=== PATIENT | female | born 1965 | race Caucasian/White ===

== ENCOUNTER → 2017-08-06 14:23 | Outpatient (CLI) | payer OTHER, SELFPAY ==
--- NOTE | 2017-08-06 14:25 | CT_ITS ---
STUDY: CT ABDOMEN AND PELVIS WITH CONTRAST REASON FOR EXAM: Female, 52 years old. Abdominal pain and bloating RADIATION DOSAGE (If Supplied By Facility): CTDIvol = ( 18.74 ) mGy, DLP = ( 1297.83 ) mGycm TECHNIQUE: Transaxial images were obtained from the dome of the diaphragm to the symphysis pubis with oral contrast. 100 ml of Isovue 300 contrast was administered. Sagittal and coronal images were reconstructed. Individualized dose optimization techniques were used for this CT. COMPARISON: None. FINDINGS: The visualized lung bases are clear. The visualized portions of the heart and pericardium are within normal limits. There are no calcified gallstones present. The liver is within normal limits. There are no suspicious hepatic lesions. The spleen is normal in size. The pancreas is within normal limits. The adrenal glands are within normal limits. There are no renal or ureteral stones. There is no hydronephrosis. There are no focal renal lesions. There is concentric wall thickening in the proximal body of the stomach (image 26 series 2). There is no bowel obstruction or inflammation. The appendix is visualized and appears normal. The aorta is normal in caliber. There is no abdominal or pelvic free air, free fluid, fluid collection or lymphadenopathy. There are no destructive osseous lesions. CT/Abdomen/Pelvis WITH Contrast IMPRESSION: Concentric wall thickening in the proximal body of the stomach. Further evaluation with endoscopy is recommended to exclude neoplasm. No bowel obstruction or dilation. Normal appendix. Normal kidneys. No hydronephrosis. Electronically Signed: Tomy Perrin, at 20:25 EDT Tel , Service support ,
== END ==
PROVIDERS: Family Provider Family Medicine; PCP Family Medicine; Visit Provider Family Medicine
DX: R10.9 Unspecified abdominal pain (principal)
CPT/HCPCS: 74177

== ENCOUNTER → 2017-08-30 15:31 | Outpatient (CLI) | payer OTHER, SELFPAY ==
--- NOTE | 2017-08-30 | IMM_PTH ---
PATIENT: SHIVANI LEW LOC: [facility] U#:[id number] AGE/SX: 59/F ROOM: RE08/30/[address]: Dr. Flo Cao MD : 1965 BED: DIS: SPEC #: [id number] RECD: 09/01/17 13:55 STATUS: MOI RUDI #: [id number] GABBI: 08/30/17 00:[address]: Flo Cao DEPT: IMMUNOHISTOCHEMISTRY RECD BY: Tameka Joyce Tissues: Gastric mucous membrane Procedures: H Pylori (initial) PHYSICIAN & INSTITUTION [place] [address] SPECIMEN INFORMATION: Tissue Source: Gastric antrum body biopsy Clinical Info: Abdomen pain Specimen Number: [id number] CPT code: 10767 METHODOLOGY: Deparaffinized sections of prefer/formalin-fixed tissue or PAP/DQ stained slides are incubated with monoclonal/polyclonal antibodies/oligonucleotide probes. Localization is made via biotin free immunoperoxidase method. Appropriate controls are performed and reacted as expected. Results on target cell population are indicated in the following table: RESULTS: ANTIBODY / CLONE RESULT H Pylori (polyclonal) negative These tests were developed and their performance characteristics determined by [facility]. They may not have been cleared or approved by the U.S. Food and Drug Administration. The FDA has determined that such clearance or approval is not necessary. INTERPRETATION: Gastric antrum body, biopsy: Negative for Helicobacter pylori organisms. HOLLY:henrietta 09/02/17
--- NOTE | 2017-08-30 12:30 | EGD_PTH ---
PATIENT: SHIVANI LEW LOC: [facility] U#:[id number] AGE/SX: 59/F ROOM: RE08/30/[address]: Dr. Flo Cao MD : 1965 BED: DIS: SPEC #: [id number] RECD: 08/30/17 15:16 STATUS: MOI RUDI #: [id number] GABBI: 08/30/17 12:[address]: Flo Cao DEPT: SURGICAL PATHOLOGY RECD BY: Federico Paez ENTERED: 08/31/17 08:00 SP TYPE: EGD BIOPSY OT DR: Dr. Lacy Juarez MD [facility] Tissues: Gastric mucous membrane Procedures: Surgery Specimen Level IV HEADER OPERATION: EGD with biopsy PRE-OP DIAGNOSIS: Abdomen pain TISSUE SUBMITTED: Gastric antrum/body biopsy, rule out gastritis MICROSCOPIC DIAGNOSIS Gastric antrum/body, biopsy: Mild gastritis. See microscopic description and comment. SJ:henrietta 09/01/17 COMMENT The results of immunohistochemistry for Helicobacter pylori will be reported separately ([id number]). MICROSCOPIC DESCRIPTION Slides are reviewed. The specimen shows fragments of gastric mucosa with chronic inflammatory cell infiltrates in the lamina propria consisting of lymphocytes and plasma cells, consistent with mild chronic gastritis. GROSS DESCRIPTION Received in fixative is one container labeled with the patient's name and designated Gastric antrum body biopsy. The specimen consists of multiple irregular fragments of light singh soft tissue that in aggregate measure 0.8 x 0.5 x 0.1 cm. The specimen is totally submitted in one cassette. / SJ:rg 08/31/17 TC:3 CPT: 70464
== END ==
PROVIDERS: Visit Provider Internal Medicine Gastroenterology
DX: R10.9 Unspecified abdominal pain (principal)
CPT/HCPCS: 88305; 88342

== ENCOUNTER → 2018-04-02 10:11 | Outpatient (CLI) | payer OTHER, SELFPAY ==
--- NOTE | 2018-04-02 10:14 | BI_ITS ---
MAMMOGRAPHY - BILATERAL SCREENING REASON FOR EXAM: Female, 53 years old. Routine annual screening examination. PERTINENT HISTORY: Non-contributory. Remote bilateral excisional breast biopsies. TECHNIQUE: Digital bilateral breast remigio (3D mammographic acquisition) in the CC and MLO projections. 2-D mediolateral oblique (MLO) and craniocaudad (CC) views of both breasts were obtained. CAD: Full Field Digital Mammography with Computer Added Detection was performed. COMPARISON: None. Baseline examination. FINDINGS: Breast Composition: The breasts are heterogeneously dense, which may obscure small masses. There is a 5.6 mm x 6 mm well-defined nodule in the central deep portion of the right breast. A similar appearing nodule is seen along the inferior medial aspect of the right breast. Correlation with ultrasound is recommended. No other significant abnormalities are identified. BI/SCREENING MAMM (CAD), BILAT IMPRESSION: Small nodular densities in the right breast as described. Correlation with ultrasound is recommended. ASSESSMENT CATEGORY: BIRADS Category 0: Incomplete. Need additional imaging evaluation. A letter regarding these results will be sent to the patient by the facility within 30 days. Approximately 10% of breast cancers are not detected by mammography. A normal mammogram should not delay biopsy of a clinically suspicious abnormality. [id number] Electronically Signed: Tobias Tyson MD at 9:27 EST , Service support ,
== END ==
PROVIDERS: Family Provider Family Medicine; PCP Family Medicine; Referring Provider Family Medicine; Visit Provider Family Medicine
DX: Z12.31 Encounter for screening mammogram for malignant neoplasm of breast (principal)
CPT/HCPCS: 77063; 77067

== ENCOUNTER → 2018-04-08 12:42 | Outpatient (CLI) | payer OTHER, SELFPAY ==
--- NOTE | 2018-04-08 12:45 | US_ITS ---
STUDY: ULTRASOUND BREAST - RIGHT REASON FOR EXAM: Female, 53 years old. Abnormal screening mammogram. TECHNIQUE: Axial and longitudinal images of the RIGHT breast were performed with a high resolution ultrasound transducer. COMPARISON: Comparison is made with prior mammogram dated April 02, 2018. FINDINGS: RIGHT Breast: There is a 4 mm x 4 mm x 3 mm cyst at the 12:00 position of the breast and 1 cm from the nipple. There is also evidence of a 3 mm x 2 mm x 3 mm cyst at the 7:00 position of the breast at 1 cm from the nipple. US/Breast Limited Unilateral IMPRESSION: 2 small cysts as described. Routine mammographic follow-up is recommended ASSESSMENT CATEGORY: BIRADS Category 2: Benign. A letter regarding these results will be sent to the patient by the facility within 30 days. Electronically Signed: Tobias Tyson, at 15:41 EST , Service support ,
== END ==
PROVIDERS: Family Provider Family Medicine; PCP Family Medicine; Referring Provider Family Medicine; Visit Provider Family Medicine
DX: R92.8 Other abnormal and inconclusive findings on diagnostic imaging of breast (principal)
CPT/HCPCS: 76642

== ENCOUNTER → 2019-06-07 08:29 | Outpatient (CLI) | payer OTHER, SELFPAY ==
--- NOTE | 2019-06-07 08:32 | BI_ITS ---
MAMMOGRAPHY - BILATERAL SCREENING REASON FOR EXAM: Female, 54 years old. Routine annual screening examination. PERTINENT HISTORY: Non-contributory. History of remote bilateral excisional breast biopsies. TECHNIQUE: Digital bilateral breast vandana (3D mammographic acquisition) in the CC and MLO projections. 2-D mediolateral oblique (MLO) and craniocaudad (CC) views of both breasts were obtained. CAD: Full Field Digital Mammography with Computer Added Detection was performed. COMPARISON: Comparison is made with prior mammogram dated December 31, 2018 and prior ultrasound of the right breast dated April 08, 2018. FINDINGS: Breast Composition: The breasts are heterogeneously dense, which may obscure small masses. There are no dominant masses or suspicious calcifications. Stable well-defined nodule in the central aspect of the right breast. No other significant abnormalities are identified. There has been no significant change since the prior study. BI/SCREEN MAMM (CAD) W/VANDANA BILAT IMPRESSION: Stable bilateral screening mammogram. Yearly follow-up mammogram recommended. (A) ASSESSMENT CATEGORY: BIRADS Category 2: Benign. A letter regarding these results will be sent to the patient by the facility within 30 days. Approximately 10% of breast cancers are not detected by mammography. A normal mammogram should not delay biopsy of a clinically suspicious abnormality. [id number] Electronically Signed: Tobias Tyson, at 10:22 EDT , Service support ,
== END ==
PROVIDERS: PCP Family Medicine; Referring Provider Family Medicine; Visit Provider Family Medicine
DX: Z12.31 Encounter for screening mammogram for malignant neoplasm of breast (principal)
CPT/HCPCS: 77063; 77067

== ENCOUNTER → 2019-07-20 | Outpatient (CLI) | payer OTHER, SELFPAY ==
[2019-07-20 15:21] VITALS: BMI 30.7
[2019-07-26 05:11] LABS: HPV APTIMA, High Risk Negative (Negative)
== END | disposition home or self-care (01) ==
LOC: LABSPEC 16:58
PROVIDERS: PCP Family Medicine; Referring Provider Nurse Practitioner Women's Health; Visit Provider Nurse Practitioner Women's Health
DX: Z12.4 Encounter for screening for malignant neoplasm of cervix (principal)
CPT/HCPCS: 87624; 88175; G0145

== ENCOUNTER 2019-09-12 05:25 | Day surgery (SDC) | payer OTHER, SELFPAY ==
[2019-07-20 15:21] VITALS: BMI 30.7
[2019-08-28 11:35] VITALS: BMI 30.7
--- NOTE | 2019-09-05 16:57 | EKG12_ITS ---
Test Reason : PREOP Blood Pressure : / mmHG Vent. Rate : 077 BPM Atrial Rate : 077 BPM P-R Int : 156 ms QRS Dur : 080 ms QT Int : 398 ms P-R-T Axes : 050 054 041 degrees QTc Int : 450 ms Normal sinus rhythm Normal ECG Confirmed by IRASEMA CONKLIN ([id number]), marketing editor XIN GILLIS ([id number]) on 09/08/2019 2:41:31 PM Referred By: Arti Abreu Confirmed By:IRASEMA CONKLIN
[2019-09-05 17:07] LABS: Hematocrit 42.3 % (37-47); Hemoglobin 14.5 g/dL (12.0-15.0); Mean Corp Hgb Conc 34.3 g/dL (32-36); Mean Corpuscular Hgb 32.2 pg (27.0-32.0); Mean Platelet Vol. 9.8 fl (6.2-12.0); Platelet Count 210 K/mm3 (150-450); RBC Distribution Width CV 11.9 % (11.6-14.6); RBC Distribution Width SD 41.1 fl (35.1-43.9); White Blood Count 5.3 K/mm3 (4.4-11.0)
[2019-09-05 18:07] LABS: Anion Gap 6 (5-15); BUN 15 mg/dL (7-18); BUN/Creat Ratio 18.1 RATIO (10-20); Calcium,Total 9.4 mg/dL (8.5-10.1); Chloride 111 mmol/L (98-107); Creatinine, Serum 0.83 mg/dL (0.55-1.02); EST Glomerular Filtration Rate 75 mL/min (>60); Est Glom Filt Rate - Afr Amer 91 mL/min (>60); Glucose 101 mg/dL (74-106); Sodium Level 141 mmol/L (136-145)
[2019-09-05 18:08] LABS: Magnesium 2.4 mg/dL (1.6-2.6)
--- NOTE | 2019-09-10 16:03 | PCM.HPOB.BLA ---
- Problem List (1) Incomplete uterovaginal prolapse Status: Acute Comment: failed pessary. plan TVH BSO combo case with Lilian. History and Physical Date of Admission: 09/12/19 Intake Vital Signs 08/28/19 Height 5 ft 5 in 08/28/19 Weight: 186 lb 08/28/19 BMI 30.9 08/28/19 BP 104/72 Intake Visit Reasons: pre op Chief Complaint: pre op TVH BSO Lilian [employer]bo [employer] Director Required: No Is patient in pain?: No Allergies No Known Allergies Allergy (Verified 08/28/19 11:35) Medications elderberry fruit 200 mg capsule mg PO 08/28/19 [History] estradiol 1 g VAGINAL 2XW 08/28/19 [History Confirmed 08/28/19] Is last menstrual period known: No Post menopausal: No Patient : No : No [facility] Medical History Uterovaginal prolapse (Acute) Surgical History H/O lumpectomy (Acute) Family History Other Heart disease Social History (Updated 08/28/19 @ 13:[address] Arti Abreu MD) Smoking Status: Never smoker alcohol intake: current details: social substance use type: does not use caffeine: Yes what type of physical activity do you participate in: walking seatbelt use: always do you feel safe at home: Yes additional social history: [employer] Patient [place] the [employer] [place]: Details: SHIVANI LEW is a 54 year old who presents for incomplete uterovaginal prolapse and having a combo case with urogyn. Pregancy History 1 Elective abortions Hx Para 0 Spontaneous abortions 1 Hx # Term Pregnancies Ectopic pregnancies Hx # Pregnancies Multiple births # of living children ROS Const Constitutional: Denies fatigue, fever(s), headache(s), increased appetite, poor appetite, weight gain or weight loss ENT ENT: Denies dizziness or dry mouth Cardio Card: Denies chest pain Resp Resp: Denies cough or dyspnea GI GI: Reports as per HPI; denies abdominal pain, constipation, nausea or vomiting : Reports as per HPI and prolapse symptoms; denies difficulty urinating, painful urination, pelvic pain, urinary frequency, urinary incontinence, urinary hesitancy, urinary urgency, vaginal discharge, vaginal dryness, vaginal odor or vaginal itching Musc Musc: Denies joint pain, back pain or muscle weakness Skin Skin/Breast: Denies hair loss, change in hair, dry skin, breast lump, breast pain or breast skin changes Neuro Neuro: Denies dizziness Psych Psych: Denies anxiety or depression Endo Endo: Denies cold intolerance, excessive sweating, heat intolerance or increased thirst Cam/Lymph Hematologic/Lymphatic: Denies easy bleeding, Denies easy bruising, Denies enlarged lymph nodes Exam Const General: cooperative, healthy appearing, comfortable, no acute distress, well developed Nutritional Appearance: average body habitus Orientation: alert [facility] Head: normal to inspection, normocephalic Ears: hearing grossly normal bilaterally, external ears normal Nose: external nose normal, nares normal Face and sinus: normal facial exam Neck Neck: normal visual inspection, no lymphadenopathy, trachea midline Thyroid: thyroid normal Chest Chest palpation & inspection: normal inspection of the chest Resp Effort & Inspection: normal respiratory effort Auscultation: clear to auscultation bilaterally Cardio Rate: regular rate Rhythm: regular rhythm Heart Sounds: S1 normal, S2 normal GI Inspection: normal to inspection, non-distended Palpation: soft, no hepatosplenomegaly General: bladder normal to palpation External Female Exam: normal external appearance, normal appearance of the urethra Urethra: normal appearance of the urethra Speculum Exam - Vagina: normal appearance of the vagina, normal vaginal discharge Speculum Exam - Cervix: normal appearance of the cervix, nontender Bimanual Exam- Vagina & Uterus: bladder normal to palpation, No cervical tenderness Bimanual Exam- Adnexa, other: normal adnexae, adnexae mobile, no adnexal masses, rectocele, cystocele, vaginal apex descent Pelvic Support: cystocele, rectocele, vaginal apex descent Musc Cervical Spine: other Other: gross motor intact no deficits, full bilateral strength Skin General: no rashes or lesions noted Neuro General: alert, awake, moves all extremities, no focal motor deficits Motor: muscle tone normal throughout Extrem General: normal to inspection, no pedal edema Psych Appearance: grossly normal Mental Status: mental status grossly normal Affect: normal affect Speech and Movement: speech and movement normal Assessment & Plan Problems 1. Incomplete uterovaginal prolapse N81.2 failed pessary. plan TVH BSO combo case with Lilian. Plan After discussing the patient's diagnosis and treatment plan options, patient wishes to proceed with surgical management. I have discussed with the patient the risks, benefits, and alternatives of the procedure which include but are not limited to risks of anesthesia, bleeding, infection, possible damage to bowel, bladder, or surrounding vasculature which could lead to additional surgery to evaluate any complications. Patient agrees to procedure and wishes to proceed. ACOG/uptodate references given for additional information regarding procedure. Coding Level of Care Code No Charge Diagnoses Incomplete uterovaginal prolapse N81.2
[2019-09-12] VITALS (12 sets, daily range): BP systolic 98–130; BP diastolic 52–86; PULSE 56–100; RESP 14–24; TEMP 36.1–37.2; O2SAT 86–100; BMI 31.2
--- NOTE | 2019-09-12 | HYST_PTH ---
PATIENT: SHIVANI LEW LOC: [facility] U#:[id number] AGE/SX: 54/F ROOM: RE09/12/[address]: Dr. Arti Abreu MD : 1965 BED: DIS: 09/13/2019 SPEC #: [id number] RECD: 09/12/19 11:49 STATUS: MOI GRIJALVA #: [id number] GABBI: 09/12/19 00:[address]: Arti Abreu DEPT: SURGICAL PATHOLOGY RECD BY: Eliel Piedra ENTERED: 09/12/19 11:50 SP TYPE: HYSTERECT OTHR DR: MD Dr. Shannan Saez MD Tissues: Uterus, NOS Procedures: Surgery Specimen Level V HEADER OPERATION: Vaginal hysterectomy, BSO PRE-OP DIAGNOSIS: Incomplete uterovaginal prolapse TISSUE SUBMITTED: Uterus, bilateral fallopian tubes and ovaries MICROSCOPIC DIAGNOSIS Uterus, bilateral fallopian tubes and ovaries, vaginal hysterectomy and bilateral salpingo-oophorectomy: Cervix - chronic cystic cervicitis, hyperkeratosis and parakeratosis. Endometrium - proliferative endometrium with focal cystic changes. Endometrial polyp - simple endometrial hyperplasia without atypia. Myometrium - focal adenomyosis. - Intramural leiomyoma (0.4 cm in greatest dimension). Bilateral fallopian tubes - no pathologic diagnosis. Bilateral ovaries - simple serous cysts (0.2 and 1 cm in greatest dimension). HOLLY:henrietta 09/13/19 MICROSCOPIC DESCRIPTION Slides are reviewed. GROSS DESCRIPTION Received in fixative is one container labeled with the patient's name and designated uterus and bilateral fallopian tubes, bilateral ovaries. The specimen consists of a hysterectomy specimen consisting of uterus with cervix and detached bilateral fallopian tubes and ovaries. The uterus with cervix weighs 38 gm and measures 7 x 3 x 2.3 cm. The ectocervix appears markedly enlarged. The ectocervical mucosa shows focal ragged area. The external os is circular in contour. The endocervical canal measures 3 cm in length and the endocervical mucosa is singh, glistening and unremarkable. The endocervical canal is filled with mucoid material. Sections of the cervix reveal a few cysts filled with mucoid material. The triangular endometrial cavity measures 3 cm in length and up to 1 cm in width. The endometrial cavity shows a polyp at the fundus measuring 0.5 x 0.5 x 0.1 cm. The myometrial wall underneath the polyp is not indurated. The rest of the endometrium is singh, glistening and measures 0.1 cm in thickness. Sections of the uterine wall do not reveal any mass lesion and measures up to 1.5 cm in thickness. The fallopian tubes are not identified as right or left. One of the fallopian tubes measure 4 cm in length and 0.5 cm in diameter. A fimbrial end is identified. Sections reveal unremarkable cut surfaces. The adjacent ovary measures 2 x 1.5 x 1 cm. Sections reveal unremarkable cut surfaces. The second fallopian tube is also similar appearance to first and measures 3.5 cm in length and 0.5 cm in diameter. No tubo-ovarian adhesions are identified on both sides. The adjacent second ovary measures 2.5 x 2 x 1 cm. Sections reveal a cyst filled with clear fluid measuring 1 cm in greatest dimension. Gambling Floor Supervisor sections are submitted in ten cassettes as follows: 1 - anterior cervix, 2 - posterior cervix (1 & 2 also contains the ragged area on the ectocervix), 3 & 4 - anterior uterine wall, 5 & 6 - posterior uterine wall, 7??endometrial polyp with underlying uterine wall, entirely submitted, 8 - one fallopian tube and adjacent ovary, 9??second fallopian tube and adjacent ovary, 10 - more sections second ovary. / HOLLY:henrietta 09/12/19 TC:5 CPT: 57232
[2019-09-12 05:51] LABS: Bedside Glucose 192 mg/dL (70-110)
[2019-09-12 05:56] LABS: Internal QC Validated? YES +Cl - CLEAR BKGD; Pregnancy, Urine Negative Negative
[2019-09-12] MEDS: dexAMETHasone 10 MG/ML Vial 8 MG IV (06:18)
[2019-09-12] MEDS: Acetaminophen 500 MG Tablet 1000 MG PO ×2 (06:20→17:09)
[2019-09-12] MEDS: Celecoxib 200 MG Capsule 400 MG PO (06:21)
[2019-09-12] MEDS: Scopolamine 1mg/72hr Patch 1 PATCH TRANSDERM. (06:21)
[2019-09-12] MEDS: Gabapentin 600 MG Tablet PO (06:21)
[2019-09-12] MEDS: Enoxaparin 40 MG/0.4 ML Syringe SC (06:22)
[2019-09-12] MEDS: Lactated Ringers 1,000 ML 40 ML IV (06:22)
[2019-09-12] MEDS: Insulin Lispro 100 UNIT/ML INSULN.PEN SC (06:29)
[2019-09-12] MEDS: Cefazolin 2 GM in 0.9% Normal Saline 100 ML IV (07:30)
[2019-09-12] MEDS: Lidocaine/D5W 2,000 MG/250 ML IV.SOLN 2000 MG (07:46)
--- NOTE | 2019-09-12 07:58 | PCM.HP.STD ---
Problem List (1) Stress incontinence Status: Acute (2) Incomplete uterovaginal prolapse Status: Acute Comment: failed pessary. plan TVH BSO combo case with Lilian. History of Present Illness Date of Admission: 09/12/19 The patient is a 54 year old Fwith pelvic organ prolapse who presents for definitive surgical intervention. She has undergone urodynamics, office cystoscopy and informed consent including a discussion regarding COVID-19. Past Medical History Medical History: Medical History (Last Reviewed 09/12/19 @ 08:[address] Shannan Quintana MD) Uterovaginal prolapse N81.4 Allergies No Known Allergies Allergy (Verified 08/28/19 11:35) Home Medications: Ambulatory Orders Medication Instructions Recorded estradiol 1 g VAGINAL 2XW 08/28/19 Elderberry Fruit/Honey [Little 118 ml PO DAILY 09/05/19 Remedies Cough-Immune] Surgical History: Surgical History (Last Reviewed 09/12/19 @ 08:[address] Shannan Quintana MD) H/O lumpectomy Z98.890 bilateral Smoking Status: Former smoker Tobacco Use: Non-smoker Review of Systems Constitutional: Denies: Anorexia, Chills, Fever Eyes: Denies: Vision Change HEENT: Denies: Visual Changes Cardiovascular: Denies: Chest Pain, Chest Pressure Respiratory: Denies: Cough, Shortness of Breath Gastrointestinal: Denies: Abdominal Pain, Diarrhea, Vomiting Gynecological: Denies: Vaginal discharge Musculoskeletal: Denies: Muscle pain Skin: Denies: Wounds Neurological: Denies: Slurred speech, Confusion VTE Information - Inpt Only VTE Present on Admission: Yes VTE Mechan Device Prophylaxis: SCD's VTE Pharm Prophylaxis ordered?: Yes Patient Problems: Active and Suspected Problems (Last Reviewed 08/28/19 @ 11:35 by Sheridan Hand) Stress incontinence (Acute) - Physical Exam Vitals/I&O's: Vital Signs Temp Pulse Resp BP Pulse Ox 96.9 F L 85 14 130/80 H 95 09/12/19 05:57 09/12/19 05:57 09/12/19 05:57 09/12/19 05:57 09/12/19 05:57 Oxygen Delivery Method Room Air Weight: 82.6 kg Body Mass Index (BMI) 31.2 General: Alert, Oriented x3, Cooperative, No apparent distress HEENT: Atraumatic, Normocephalic Oral: Moist Mucosa Neck: Supple, Trachea Midline Lungs: Clear to auscultation, Normal air movement Cardiovascular: Regular rate, Regular Rhythm Abdomen: Soft, Non Tender, Non-Distended Extremities: No clubbing Skin: No rashes Musculoskeletal: No Muscle Wasting Neurological: Cranial nerves II-XII grossly intact, Neuro grossly intact Psych/Mental Status: Normal Affect, Alert and oriented to time, place, person, mood and affect Laboratory Results 09/12/19 05:46: POC Glucose 192 H 09/12/19 05:52: Urine Test Negative Current Medications Lactated Ringer's () 1,000 mls @ 40 mls/hr IV .Q25H HERNAN Last Admin: 09/12/19 06:22 Dose: 40 mls/hr Documented by: Lactated Ringer's () 1,000 mls @ 70 mls/hr IV .[id number] HERNAN Ketamine HCl 250 mg/ Sodium (Chloride) 250 mls @ 50.349 mls/hr IV .Q4H58M ONE Stop: 09/12/19 11:57 Insulin Human Lispro (Humalog Kwikpen (Bkc)) 0 unit SC Q4H PRN PRN; Protocol PRN Reason: BG >/= 180, SEE PROTOCOL Last Admin: 09/12/19 06:29 Dose: 1 u Documented by: Assessment/Plan All Active Problems (Last Reviewed 08/28/19 @ 11:35 by Sheridan Hand) Stress incontinence (Acute) Incomplete uterovaginal prolapse (Acute) anterior and posterior repair, bilateral sacrospinous ligament fixation with dermis, midurethral sling and cystoscopy with . Procedure Criteria Procedure Type: Elective COVID Risk Discussion: The surgeon/proceduralist and patient have discussed in detail the risk of exposure to and/or potential harm posed by the COVID-19 virus with having a surgery/procedure at this time versus the risk of delaying the surgery/procedure. It is not possible to know either the risk of delaying the surgery or procedure or chance of getting an infection with perfect accuracy, but a joint decision was made between the patient and the surgeon/proceduralist to proceed at this time with the scheduled surgery/procedure as indicated on the consent form.
--- NOTE | 2019-09-12 08:02 | OP.PCM_ITS ---
Problem List (1) Stress incontinence Status: Acute (2) Incomplete uterovaginal prolapse Status: Acute Comment: failed pessary. plan TVH BSO combo case with Lilian. Report of Operation Date of Procedure: 09/12/19 Pre-Operative Diagnosis: incomplete uterovaginal prolapse, stress incontinence Post-Operative Diagnosis: same Surgery/Procedure Performed:: Anterior and posterior repair with dermis, bilateral sacrospinous ligament fixation, mid urethral sling insertion, cystoscopy with bilateral ureteral catheterization precision millwright: Jayna Type of Anesthesia:: General Estimated Blood Loss (mL): 25cc Description of Procedure: The patient was taken to the operating room and placed on the operating room table. Anesthesia monitored the head, neck, airway, IV access and vital signs throughout the case. Once anesthesia was appropriate ministered the patient was laced into dorsal lithotomy in Trendelenburg position and was prepped and draped in usual sterile fashion. A sterile Gerber catheter was then inserted to straight drain. Dr. Abreu and Dr. Wadsworth then performed their portion of the case and closed the vaginal cuff. At this time the case was turned to nj. The anterior vaginal wall was injected with vasopressin submucosally for hemostatic control and hydrostatic dissection. An anterior vertical incision was made approximately 2 and half centimeters in length. Sharp and blunt dissection was performed on either side until the ischial spines were clearly palpable and the sacrospinous ligaments were freed from surrounding tissues. Using a 2 Monodek sutures were taken through the sacrospinous ligament brought through the dermis and then out into the apex of the vagina. The dermis was sutured using interrupted 2-0 Vicryl in the midline at the apex and the bladder neck area as well as the white lines bilaterally. At this time the midline vaginal mucosa was closed with running interlocking 2-0 Vicryl. The apex sutures through the sacrospinous ligament were then tied down. The suture on the right side appeared to be pulled through the sacrospinous ligament. At this time attention was turned toward the posterior wall. The submucosa was once again injected with vasopressin, a midline incision was made and sharp and blunt dissection was performed until the rectovaginal fascia was identified. On the patient's right side the dissection continued down to the sacrospinous ligament and another to a Monodek was passed through this, through a small portion of dermis and then through the apex. The rectovaginal fascia was then brought together using dermis and 2-0 Vicryl. The perineal body was brought together with 2-0 Vicryl interrupted sutures. Following this new support, a 2-0 Vicryl was used to close the posterior vaginal fascia in running interlocking fashion. The sacrospinous ligament suture was then tied down without difficulty. At this time the submucosa of the mid urethral space was filled with vasopressin. A midline incision was made. Blunt and sharp dissection was performed on either side of the urethra in order to prepare for placement of the mid urethral sling. The alto sling was placed into the obturator complexes bilaterally using the trochars. There was no difficulty in placement of the sling. It lay flat against the urethra without tension. The mid atrial incision was then closed with running interlocking 2-0 Vicryl. At this time the Gerber catheter was removed and a cystourethroscopy was performed through the urethra. This revealed no evidence of injury to the urinary bladder. There was no mass, ulceration, foreign body identified. Bilateral ureteral orifices were catheterized with the 5 Frisian whistle-tip. It easily passed bilaterally to 20 cm without blood or obstruction. The urethra was visualized and there was no entry into the urethra. The Gerber catheter was then reinserted into the urinary bladder through the urethra and the balloon was inflated with 10 cc of saline. The vagina was packed with Premarin cream and vaginal packing. The patient was then awakened and taken to the recovery room in good condition. There were no complications during this procedure. Grafts/Implants Used: Dermis, Altis midurethral sling - Complications None - Admit VTE Documentation VTE Present on Admission: Yes VTE Mechan Device Prophylaxis: SCD's VTE Pharm Prophylaxis ordered?: Yes
--- NOTE | 2019-09-12 08:03 | DCINST_ITS ---
Discharge Diet: No Restrictions Discharge Activity: May Not Drive - for 2 weeks, May Shower - no tub bathing, no hot tubs or swimming May resume sexual activity in: 8 weeks Lifting Restrictions: 5 pounds Additional Activity Instructions:: no strenuous activity, no exercise. ok to go up and down stairs as needed Call your doctor if your incision/area has: Continuous Slow Oozing, Sudden Increased Bleeding, Increased Pain/ Swelling, Increased Redness, Foul Smelling Discharge Call your doctor if you observe: Fever of 101 or Higher, Inability to urinate, Inability to have a bowel movement, Uncontrolled pain Allergies/Adverse Reactions: Allergies No Known Allergies Allergy (Verified 08/28/19 11:35) Medications to take at Discharge estradiol 1 g VAGINAL 2XW 08/28/19 Elderberry Fruit/Honey [Little Remedies Cough-Immune] 118 ml PO DAILY 09/05/19 Primary Care Physician: Lacy Juarez MD [Primary Care Provider] - Test Results: Test results from this visit will be discussed in further detail at your follow- up appointment, if applicable. Please Follow Up With: Shannan Quintana MD When: call office for appt Proposed Discharge Date: 09/13/19
[2019-09-12] MEDS: Vasopressin 20 UNITS/ML Vial (08:05)
--- NOTE | 2019-09-12 09:35 | OP.PCM_ITS ---
Problem List (1) Incomplete uterovaginal prolapse Status: Acute Comment: failed pessary. plan TVH BSO combo case with Lilian. Report of Operation Date of Procedure: 09/12/19 Pre-Operative Diagnosis: prolapse Post-Operative Diagnosis: same Surgery/Procedure Performed:: tvdonaldoso Description of Surgical Findings:: nl uterus tubes ovaries, grade IV prolapse cost estimator: Ivon Wadsworth Type of Anesthesia:: General Special Medications: none Specimen's removed: uterus tubes ovaries Drains: rankin Estimated Blood Loss (mL): 50 Fluids Replaced: crystalloid Description of Procedure: Patient was taken to the operating room and was placed under general anesthesia was prepped and draped in normal sterile fashion in the dorsal lithotomy position. Preoperative antibiotics and SCDs and Rankin catheter was placed inside the bladder. Weighted speculum was placed in the vagina and the anterior and posterior lip of the cervix was grasped with 2 Bola clamps and c ircumferentially injected with dilute vasopressin. A circumferential incision was made with a scalpel and the posterior cul-de-sac was entered into sharply and a longneck speculum was placed. The anterior cul-de-sac was also dissected down and entered into sharply and the uterosacral ligaments were clamped cut and suture ligated bilaterally followed by the cardinal ligaments which were Clamped cut and suture ligated bilaterally with 0 Monocryl. The uterus serially descended and progressive bites were taken bilaterally up to the level of the utero-ovarian ligament bilaterally which was clamped transected and double ligated with 0 Monocryl suture and 0 Vicryl free tie. Bilateral fallopian tubes and ovaries were well visualized and noted be within normal limits and the bilateral fallopian tubes and ovaries were transected across the base with a sherron clamp and removed and sutured with 0 Vicryl suture. Excellent hemostasis was noted. The vagina was closed with [id number] 0 Vicryl pop offs including the posterior and anterior peritoneum in the reapproximation. Excellent hemostasis was noted. All instruments removed from the vagina clear urine was noted at the end of the procedure. see dr mahmood's note regarding additional operative information Grafts/Implants Used: see urogyn note - Complications none - Admit VTE Documentation VTE Present on Admission: No VTE Mechan Device Prophylaxis: SCD's VTE Pharm Prophylaxis ordered?: Yes Multi Select Codes - Urinary/Genital Urinary/Genital CPT Codes: 17510 TVH+BS/O <250gr uterus, Other Procedure See Report
--- NOTE | 2019-09-12 09:47 | DCINST_ITS ---
Discharge Diet: No Restrictions Discharge Activity: May Not Drive - for 2 weeks, May Shower - no tub bathing, no hot tubs or swimming May resume sexual activity in: 8 weeks Additional Activity Instructions:: no strenuous activity, no exercise. ok to go up and down stairs as needed Call your doctor if your incision/area has: Continuous Slow Oozing, Sudden Increased Bleeding, Increased Pain/ Swelling, Increased Redness, Foul Smelling Discharge Call your doctor if you observe: Fever of 101 or Higher, Inability to urinate, Inability to have a bowel movement, Uncontrolled pain Allergies/Adverse Reactions: Allergies No Known Allergies Allergy (Verified 08/28/19 11:35) Medications to take at Discharge estradiol 1 g VAGINAL 2XW 08/28/19 Elderberry Fruit/Honey [Little Remedies Cough-Immune] 118 ml PO DAILY 09/05/19 Naproxen [Naprosyn] 250 - 500 mg PO Q8H PRN PRN #30 tab 09/12/19 Oxycodone HCl/Acetaminophen [Percocet 5-325] 1 - 2 tablet PO Q6H PRN PRN 7 Days #15 tablet 09/12/19 The following prescriptions were given: Naproxen [Naprosyn] 250 - 500 mg PO Q8H PRN PRN #30 tab PRN Reason: MILD PAIN Transmission Status: Pending to [facility] Oxycodone HCl/Acetaminophen [Percocet 5-325] 1 - 2 tablet PO Q6H PRN PRN 7 Days #15 tablet PRN Reason: Pain Transmission Status: Sent to [facility] Primary Care Physician: Lacy Juarez MD [Primary Care Provider] - Test Results: Test results from this visit will be discussed in further detail at your follow- up appointment, if applicable. Please Follow Up With: Shannan Quintana MD When: call office for appt Proposed Discharge Date: 09/13/19
[2019-09-12] MEDS: Estrogens,Conj. 1 Tube 1 DOSE (10:38)
[2019-09-12] MEDS: Ketorolac 30 MG/ML Syringe IV ×2 (11:46→17:08)
[2019-09-12 12:00] LABS: Bedside Glucose 228 mg/dL (70-110)
[2019-09-12] MEDS: Lactated Ringers 1,000 ML 70 ML IV (13:40)
[2019-09-12] MEDS: Cephalexin 500 MG Capsule PO (21:17)
[2019-09-13 00:30] VITALS: BP 112/60; PULSE 97; RESP 18; TEMP 37.3; O2SAT 93
[2019-09-13] MEDS: Acetaminophen 500 MG Tablet 1000 MG PO ×3 (00:33→14:05)
[2019-09-13] MEDS: Ketorolac 30 MG/ML Syringe IV ×3 (00:34→14:05)
[2019-09-13] MEDS: 0.9% Saline Lock 10 ML Syringe IV ×3 (00:34→14:05)
[2019-09-13] MEDS: Lactated Ringers 1,000 ML 70 ML IV (03:55)
[2019-09-13 05:19] VITALS: BP 113/64; PULSE 82; RESP 16; TEMP 37.2; O2SAT 93
[2019-09-13 05:38] LABS: Hematocrit 35.2 % (37-47); Hemoglobin 11.6 g/dL (12.0-15.0); Mean Corpuscular Hgb 31.7 pg (27.0-32.0); Mean Corpuscular Volume 96.2 fL (81-99); Mean Platelet Vol. 10.1 fl (6.2-12.0); Platelet Count 187 K/mm3 (150-450); RBC Distribution Width CV 11.9 % (11.6-14.6); RBC Distribution Width SD 41.7 fl (35.1-43.9); Red Blood Count 3.66 M/mm3 (4.2-5.4); White Blood Count 10.5 K/mm3 (4.4-11.0)
[2019-09-13 07:22] VITALS: O2SAT 94
--- NOTE | 2019-09-13 07:23 | PCM.PN.BLA ---
Progress Note Sitting up in bed. Comfortable. Complaining of pain and blisters on her back. Was nauseated yesterday, but resolved. Now passing gas and tolerating PO. Tm 99.2 vitals good. Abdomen soft. Not distended. Low back with 3 blisters present, one is unroofed. No sign of infection. It is covered with gauze. Urine clear. SCD's in place. Gerber and packing removed without an issue. A/P POD#1 pelvic reconstruction with hysterectomy 1. consult wound RN 2. Trial of void 3. increase ambulation 4. continue supportive care 5. home later today STROKE Vital Signs/Narrative: Vital Signs Temp Pulse Resp BP Pulse Ox 09/13/19 07:22 94 09/13/19 05:19 98.9 F 82 16 113/64 93
--- NOTE | 2019-09-13 07:44 | NURSING ---
Gail Dashs in to speak to patient- notified her to follow up with her PCP regarding blood glucose.
--- NOTE | 2019-09-13 07:55 | PCM.PN.OB ---
Patient Problems: Active and Suspected Problems (Last Reviewed 09/12/19 @ 08:[address] Shannan Quintana MD) Stress incontinence (Acute) Subjective: Pain controlled. C/O lungs hurt. Denies other concerns. - Physical Exam Vitals/I&O's: Vital Signs Temp Pulse Resp BP Pulse Ox 98.9 F 82 16 113/64 94 09/13/19 05:19 09/13/19 05:19 09/13/19 05:19 09/13/19 05:19 09/13/19 07:22 Oxygen Flow Rate (L/min) 6 Oxygen Delivery Method Room Air Weight: 182 lb 1.629 oz Body Mass Index (BMI) 31.2 Intake and Output for Last 24 Hours 09/11/19 09/12/19 09/13/19 23:59 23:59 23:59 Intake Total 1057 / 1537 1927.5 / 1927.5 Output Total 675 / 925 1250 / 1250 Balance 382 / 612 677.5 / 677.5 General: Alert, Oriented x3 Lungs: - - No audible respiratory distress Abdomen: Soft, Non Tender, Non-Distended Laboratory Results 09/12/19 11:55: POC Glucose 228 H 09/13/19 05:22: WBC 10.5, RBC 3.66 L, Hgb 11.6 L, Hct 35.2 L, MCV 96.2, MCH 31.7, MCHC 33.0, RDW Std Deviation 41.7, RDW Coeff of [place] 11.9, Plt Count 187, MPV 10.1 Current Medications Acetaminophen (Tylenol) 1,000 mg PO Q6 [facility] Last Admin: 09/13/19 05:22 Dose: 1,000 mg Documented by: Cephalexin (Keflex) 500 mg PO Q12 [facility] Last Admin: 09/12/19 21:17 Dose: 500 mg Documented by: Docusate Sodium (Colace) 100 mg PO BID [facility] Last Admin: 09/12/19 21:17 Dose: Not Given Documented by: Enoxaparin Sodium (Lovenox) 40 mg SC DAILY [facility] Lactated Ringer's () 1,000 mls @ 70 mls/hr IV .[id number] [facility] Stop: 09/13/19 11:41 Last Admin: 08/05/20 03:55 Dose: 70 mls/hr Documented by: Ketorolac Tromethamine (Toradol (Bkc)) 30 mg IV Q6 [facility] Stop: 09/13/19 18:01 Last Admin: 09/13/19 05:23 Dose: 30 mg Documented by: Magnesium Oxide (Mag-Ox 400) 400 mg PO DAILY PRN PRN PRN Reason: Constipation Nutritional Formula (Lactose Free) (Ensure Enlive) 120 ml PO TIDCM [facility] Last Admin: 09/12/19 17:08 Dose: 120 ml Documented by: Ondansetron HCl (Zofran Odt) 4 mg PO Q6H PRN PRN PRN Reason: NAUSEA Oxycodone HCl (Oxyir) 5 - 10 mg PO Q4H PRN PRN PRN Reason: Pain Score 4-10/10 Sodium Chloride () 10 - 40 ml IV UD PRN PRN Reason: SALINE FLUSH Last Admin: 09/13/19 05:23 Dose: 10 ml Documented by: Medical Necessity - Tobacco Use Smoking Status: Former smoker Tobacco Use: Non-smoker Assessment/Plan All Active Problems (Last Reviewed 09/12/19 @ 08:[address] Shannan Quintana MD) Stress incontinence (Acute) Incomplete uterovaginal prolapse (Acute) Postop day #1 TVH BSO and combination case with Dr Quintana Plan chest xray otherwise routine care Noted elevated glucose and encouraged follow up evaluation with PCP See Dr Quintana's note and orders Plans home later today OV 2 weeks
[2019-09-13 08:53] VITALS: BP 107/64; PULSE 82; RESP 18; TEMP 36.9; O2SAT 95
[2019-09-13] MEDS: Cephalexin 500 MG Capsule PO (08:56)
[2019-09-13] MEDS: Enoxaparin 40 MG/0.4 ML Syringe SC (08:56)
--- NOTE | 2019-09-13 10:03 | NURSING ---
wound photo: lower back
--- NOTE | 2019-09-13 10:31 | NURSING ---
Addendum entered by Carolyn Blancas 09/13/19 10:44: Dr. Quintana returned call and spoke with this RN. Notified that wound RN did see pt this AM for blister and that dressing supplies were provided. This RN then called xray and notified them of portable CXR prior to d/c. spo2 and respirations WNL lungs clear with dim bases. Original Note: This RN called Dr. Quintana's office and left a message notifying her of urination of 300 status post rankin removal and of PVR=0. Also notified awaiting CXR ordered by SEDA Storey
--- NOTE | 2019-09-13 10:48 | RAD_ITS ---
STUDY: X-RAY CHEST REASON FOR EXAM: Female, 54 years old. LUNG DISCOMFORT SOB UPON DEEP INSPIRATION SHE COUGHS. PATIENT HAD RECENT HYSTERECTOMY BSO/A and amp;P REP SLING CYSTO SSLF TECHNIQUE: Single AP portable view of the chest. COMPARISON: None. FINDINGS: Limited inspiratory effort. Mild increased markings at the lung bases worse on the left side suggests some bibasilar atelectasis. There is no demonstrated pleural abnormality. Normal size heart. Normal mediastinum and christian. Normal visualized pulmonary arteries. Normal visualized aortic arch and descending thoracic aorta. Normal visualized thoracic spine. Normal visualized ribs, clavicles, and shoulders. There is no demonstrated abnormality of the visualized soft tissue structures of the upper abdomen. RAD/Chest 1 View (Portable) IMPRESSION: Limited inspiration. Findings in keeping with bibasilar atelectasis worse on the left side. Electronically Signed: Tobias Tyson, at 11:12 EDT , Service support ,
--- NOTE | 2019-09-13 10:56 | NURSING ---
portable CXR completed at this time
--- NOTE | 2019-09-13 13:31 | CPS ---
started by nursing
[2019-09-13 14:11] VITALS: BP 118/91; PULSE 82; RESP 16; TEMP 36.4; O2SAT 94
== END 2019-09-13 14:45 | disposition home or self-care (01) ==
LOC: SDC 05:26 → AC 05:27 → MS3 08:33
PROVIDERS: Anesthesiology; Urology; PCP Family Medicine; Referring Provider Obstetrics & Gynecology; Visit Provider Obstetrics & Gynecology
PROC: (CPT 58260; principal; 2019-09-12 07:10)
PROC: (CPT 57260; 2019-09-12 07:10)
DX: N81.2 Incomplete uterovaginal prolapse (principal); Z11.59 Encounter for screening for other viral diseases; N39.3 Stress incontinence (female) (male); Z87.891 Personal history of nicotine dependence; D25.1 Intramural leiomyoma of uterus; N83.202 Unspecified ovarian cyst, left side; N83.201 Unspecified ovarian cyst, right side
CPT/HCPCS: 00940; 57260; 57288; 58262; 36415; 71045; 80048; 81025; 82962; 83735; 85027; 86850; 86900; 86901; 87635; 88307; 93005; 94799; 99251; J7050; J7120; A4216; C1758; G0463; J2405; U0003

== ENCOUNTER → 2019-09-21 12:09 | Outpatient (CLI) | payer OTHER, SELFPAY ==
[2019-09-12 13:32] VITALS: BMI 31.2
[2019-09-21 12:43] LABS: Absolute Lymphocyte Count 1.62 X10^3/uL (0.83-4.51); Absolute Neutrophil Count 3.7 X10^3/uL (2.0-7.7); Basophil# 0.05 X10^3/uL; Basophil% 0.8 % (0-1); Eosinophils% 3.2 % (0-5); Hematocrit 43.2 % (37-47); Hemoglobin 14.2 g/dL (12.0-15.0); Lymphocyte # 1.62 X10^3/ul (4.0); Lymphocyte % 26.2 % (19-41); Mean Corp Hgb Conc 32.9 g/dL (32-36); Mean Corpuscular Volume 97.3 fL (81-99); Mean Platelet Vol. 9.7 fl (6.2-12.0); Monocyte# 0.64 X10^3/uL; Monocyte% 10.3 % (0-10); NRBC Flagged by Analyzer 0 % (0-5); Neutrophil # 3.65 X10^3/uL (2.7-7.7); Platelet Count 248 K/mm3 (150-450); RBC Distribution Width CV 11.9 % (11.6-14.6); RBC Distribution Width SD 42.5 fl (35.1-43.9); Red Blood Count 4.44 M/mm3 (4.2-5.4); White Blood Count 6.2 K/mm3 (4.4-11.0)
[2019-09-21 13:19] LABS: AST(SGOT) 17 U/L (15-37); Alanine Aminotransfer ALT/SGPT 38 U/L (13-56); Albumin, Serum 3.7 g/dL (3.2-5.0); Alkaline Phosphatase 82 U/L (45-117); Anion Gap 3 (5-15); BUN 13 mg/dL (7-18); BUN/Creat Ratio 17.3 RATIO (10-20); Calcium,Total 9.2 mg/dL (8.5-10.1); Chloride 112 mmol/L (98-107); Creatinine, Serum 0.75 mg/dL (0.55-1.02); EST Glomerular Filtration Rate 84 mL/min (>60); Est Glom Filt Rate - Afr Amer 102 mL/min (>60); Globulin 3.7 g/dL (2.2-4.2); Glucose 73 mg/dL (74-106); Protein, Total 7.4 g/dL (6.4-8.2); Sodium Level 141 mmol/L (136-145)
== END ==
PROVIDERS: PCP Family Medicine; Referring Provider Obstetrics & Gynecology; Visit Provider Obstetrics & Gynecology
DX: R14.0 Abdominal distension (gaseous) (principal)
CPT/HCPCS: 36415; 80053; 85025

== ENCOUNTER → 2019-09-25 12:02 | Outpatient (CLI) | payer OTHER, SELFPAY ==
[2019-09-12 13:32] VITALS: BMI 31.2
[2019-09-25 15:51] LABS: Cholesterol 255 mg/dL (200); High Density Lipoprotein 55 mg/dL; Triglycerides 211 mg/dL; Very Low Density Lipoprotein 42 mg/dL (5-40)
[2019-09-25 15:56] LABS: Hemoglobin A1c 6.3 % (3.8-5.6)
== END ==
PROVIDERS: PCP Family Medicine; Referring Provider Family Medicine; Visit Provider Family Medicine
DX: R73.09 Other abnormal glucose (principal); E78.00 Pure hypercholesterolemia, unspecified
CPT/HCPCS: 36415; 80061; 83036

== ENCOUNTER 2019-10-31 16:45 | Outpatient (RCR) | payer OTHER, SELFPAY ==
[2019-09-27 11:42] VITALS: BMI 31.2
== END 2019-11-08 23:59 ==
LOC: NS 16:45
PROVIDERS: PCP Family Medicine; Visit Provider Family Medicine
DX: Z71.3 Dietary counseling and surveillance (principal); E66.9 Obesity, unspecified; Z68.31 Body mass index [BMI] 31.0-31.9, adult; E78.00 Pure hypercholesterolemia, unspecified; R73.09 Other abnormal glucose
CPT/HCPCS: 97802

== ENCOUNTER → 2019-11-08 16:47 | Outpatient (CLI) | payer OTHER, SELFPAY ==
[2019-09-27 11:42] VITALS: BMI 31.2
[2019-11-08 17:55] LABS: Hemoglobin A1c 5.7 % (3.8-5.6)
[2019-11-08 18:15] LABS: Cholesterol 173 mg/dL (200); High Density Lipoprotein 58 mg/dL; Triglycerides 241 mg/dL; Very Low Density Lipoprotein 48 mg/dL (5-40)
== END ==
PROVIDERS: PCP Family Medicine; Referring Provider Family Medicine; Visit Provider Family Medicine
DX: R73.09 Other abnormal glucose (principal); E78.00 Pure hypercholesterolemia, unspecified
CPT/HCPCS: 36415; 80061; 83036

== ENCOUNTER 2019-11-27 17:00 | Outpatient (RCR) | payer OTHER, SELFPAY ==
[2019-09-27 11:42] VITALS: BMI 31.2
== END 2019-12-09 23:59 ==
LOC: NS 17:00
PROVIDERS: PCP Family Medicine; Visit Provider Family Medicine
DX: Z71.3 Dietary counseling and surveillance (principal); E66.9 Obesity, unspecified; Z68.31 Body mass index [BMI] 31.0-31.9, adult; E78.00 Pure hypercholesterolemia, unspecified; R73.09 Other abnormal glucose
CPT/HCPCS: 97803

== ENCOUNTER 2019-12-26 17:00 | Outpatient (RCR) | payer OTHER, SELFPAY ==
[2019-09-27 11:42] VITALS: BMI 31.2
== END 2020-01-08 23:59 ==
LOC: NS 17:00
PROVIDERS: PCP Family Medicine; Visit Provider Family Medicine
DX: Z71.3 Dietary counseling and surveillance (principal); E66.9 Obesity, unspecified; Z68.31 Body mass index [BMI] 31.0-31.9, adult; E78.00 Pure hypercholesterolemia, unspecified; R73.09 Other abnormal glucose
CPT/HCPCS: 97803

== ENCOUNTER 2020-01-23 17:00 | Outpatient (RCR) | payer OTHER, SELFPAY ==
[2019-09-27 11:42] VITALS: BMI 31.2
== END 2020-02-08 23:59 ==
LOC: NS 17:00
PROVIDERS: PCP Family Medicine; Visit Provider Family Medicine
DX: Z71.3 Dietary counseling and surveillance (principal); E66.9 Obesity, unspecified; Z68.31 Body mass index [BMI] 31.0-31.9, adult; E78.00 Pure hypercholesterolemia, unspecified; R73.09 Other abnormal glucose
CPT/HCPCS: 97803

== ENCOUNTER → 2020-06-10 15:49 | Outpatient (CLI) | payer OTHER, SELFPAY ==
[2019-09-27 11:42] VITALS: BMI 31.2
[2020-06-10 14:57] VITALS: BMI 31.2
--- NOTE | 2020-06-10 15:51 | BI_ITS ---
MAMMOGRAPHY - BILATERAL SCREENING REASON FOR EXAM: Female, 55 years old. Routine annual screening examination. PERTINENT HISTORY: Non-contributory. TECHNIQUE: Digital bilateral breast vandana (3D mammographic acquisition) in the CC and MLO projections. 2-D mediolateral oblique (MLO) and craniocaudad (CC) views of both breasts were obtained. CAD: Full Field Digital Mammography with Computer Added Detection was performed. COMPARISON: Comparison is made with prior study dated 06/07/2019 and 10/31/2018. FINDINGS: Breast Composition: The breasts are heterogeneously dense, which may obscure small masses. There are no dominant masses or suspicious calcifications. No other significant abnormalities are identified. There has been no significant change since the prior study. BI/SCRN MAMM (CAD)W/VANDANA BILAT IMPRESSION: Stable bilateral screening mammogram. Yearly follow-up mammogram recommended. (A) ASSESSMENT CATEGORY: BIRADS Category 1: Negative. A letter regarding these results will be sent to the patient by the facility within 30 days. Approximately 10% of breast cancers are not detected by mammography. A normal mammogram should not delay biopsy of a clinically suspicious abnormality. [id number] Electronically Signed: Tobias Tyson MD at 8:56 EDT , Service support ,
== END ==
PROVIDERS: PCP Family Medicine; Referring Provider Obstetrics & Gynecology; Visit Provider Obstetrics & Gynecology
DX: Z12.31 Encounter for screening mammogram for malignant neoplasm of breast (principal)
CPT/HCPCS: 77063; 77067

== ENCOUNTER → 2020-11-18 11:02 | Outpatient (CLI) | payer OTHER, SELFPAY ==
[2020-11-18 12:05] LABS: Absolute Lymphocyte Count 1.53 X10^3/uL (0.83-4.51); Absolute Neutrophil Count 2.5 X10^3/uL (2.0-7.7); Basophil# 0.04 X10^3/uL; Basophil% 0.9 % (0-1); Eosinophil# 0.13 X10^3/uL; Eosinophils% 2.8 % (0-5); Hematocrit 41.5 % (37-47); Hemoglobin 13.9 g/dL (12.0-15.0); Lymphocyte # 1.53 X10^3/ul (0.83-4.51); Lymphocyte % 32.8 % (19-41); Mean Corp Hgb Conc 33.5 g/dL (32-36); Mean Corpuscular Hgb 31.7 pg (27.0-32.0); Mean Corpuscular Volume 94.5 fL (81-99); Mean Platelet Vol. 10.6 fl (6.2-12.0); Monocyte# 0.44 X10^3/uL; Monocyte% 9.4 % (0-10); NRBC Flagged by Analyzer 0 % (0-5); Neutrophil # 2.52 X10^3/uL (2.7-7.7); Neutrophil % 53.9 % (47-70); Platelet Count 223 K/mm3 (150-450); RBC Distribution Width CV 11.7 % (11.6-14.6); RBC Distribution Width SD 40.2 fl (35.1-43.9); Red Blood Count 4.39 M/mm3 (4.2-5.4); White Blood Count 4.7 K/mm3 (4.4-11.0)
[2020-11-18 12:33] LABS: Anion Gap 7 (5-15); BUN 11 mg/dL (7-18); BUN/Creat Ratio 12.9 RATIO (10-20); Calcium,Total 9.7 mg/dL (8.5-10.1); Chloride 108 mmol/L (98-107); Cholesterol 189 mg/dL (200); Creatinine, Serum 0.85 mg/dL (0.55-1.02); EST Glomerular Filtration Rate 73 mL/min (>60); Est Glom Filt Rate - Afr Amer 88 mL/min (>60); Glucose 176 mg/dL (74-106); High Density Lipoprotein 57 mg/dL; Potassium 4.3 mmol/L (3.5-5.1); Sodium Level 142 mmol/L (136-145); Triglycerides 299 mg/dL; Very Low Density Lipoprotein 60 mg/dL (5-40)
[2020-11-18 13:03] LABS: Microalbumin,Random Urine 11.5 mg/L (NO RANGE EST.); Microalbumin:Creatinine Ratio 10.5 mg/g CRE (<30 mg/g CRE)
== END ==
PROVIDERS: PCP Family Medicine; Visit Provider Family Medicine
DX: E11.9 Type 2 diabetes mellitus without complications (principal)
CPT/HCPCS: 36415; 80048; 80061; 82043; 82570; 85025

== ENCOUNTER → 2021-06-12 | Outpatient (CLI) | payer OTHER, SELFPAY ==
[2020-06-10 14:57] VITALS: BMI 31.2
--- NOTE | 2021-06-12 07:58 | BI_ITS ---
MAMMOGRAPHY - BILATERAL SCREENING REASON FOR EXAM: Female, 56 years old. Routine annual screening examination. PERTINENT HISTORY: Non-contributory. Remote bilateral excisional breast biopsies. TECHNIQUE: Digital bilateral breast vandana (3D mammographic acquisition) in the CC and MLO projections. 2-D mediolateral oblique (MLO) and craniocaudad (CC) views of both breasts were obtained. CAD: Full Field Digital Mammography with Computer Added Detection was performed. COMPARISON: Comparison is made with prior study dated 06/10/2020 and 06/07/2019. FINDINGS: Breast Composition: The breasts are heterogeneously dense, which may obscure small masses. There are no dominant masses or suspicious calcifications. No other significant abnormalities are identified. There has been no significant change since the prior study. BI/SCRN MAMM (CAD)W/VANDANA BILAT IMPRESSION: Stable bilateral screening mammogram. Yearly follow-up mammogram recommended. (A) ASSESSMENT CATEGORY: BIRADS Category 1: Negative. A letter regarding these results will be sent to the patient by the facility within 30 days. Approximately 10% of breast cancers are not detected by mammography. A normal mammogram should not delay biopsy of a clinically suspicious abnormality. [id number] Electronically Signed: Tobias Tyson MD at 8:43 EDT ,
== END | disposition home or self-care (01) ==
LOC: OPBI 07:57
PROVIDERS: PCP Family Medicine; Referring Provider Obstetrics & Gynecology; Visit Provider Obstetrics & Gynecology
DX: Z12.31 Encounter for screening mammogram for malignant neoplasm of breast (principal)
CPT/HCPCS: 77063; 77067

== ENCOUNTER → 2021-10-06 | Outpatient (CLI) | payer OTHER, SELFPAY ==
[2021-10-06 12:43] LABS: Hemoglobin A1c 6.9 % (3.8-5.6)
[2021-10-06 13:00] LABS: AST(SGOT) 19 U/L (15-37); Alanine Aminotransfer ALT/SGPT 32 U/L (13-56); Albumin, Serum 3.9 g/dL (3.2-5.0); Alkaline Phosphatase 107 U/L (45-117); Anion Gap 7 (5-15); BUN 18 mg/dL (7-18); BUN/Creat Ratio 19.5 RATIO (10-20); Bilirubin, Direct 0.13 mg/dL (0.00-0.30); Calcium,Total 9.6 mg/dL (8.5-10.1); Chloride 108 mmol/L (98-107); Cholesterol 170 mg/dL (200); Creatinine, Serum 0.92 mg/dL (0.55-1.02); EST Glomerular Filtration Rate 66 mL/min (>60); Est Glom Filt Rate - Afr Amer 80 mL/min (>60); Globulin 3.8 g/dL (2.2-4.2); Glucose 166 mg/dL (74-106); High Density Lipoprotein 55 mg/dL; Protein, Total 7.7 g/dL (6.4-8.2); Sodium Level 139 mmol/L (136-145); Triglycerides 177 mg/dL; Very Low Density Lipoprotein 35 mg/dL (5-40)
== END | disposition home or self-care (01) ==
LOC: MFPLAB 10:13
PROVIDERS: PCP Family Medicine; Visit Provider Family Medicine
DX: R73.09 Other abnormal glucose (principal); E78.00 Pure hypercholesterolemia, unspecified
CPT/HCPCS: 36415; 80048; 80061; 80076; 83036

== ENCOUNTER → 2021-10-31 | Outpatient (CLI) | payer OTHER, SELFPAY ==
--- NOTE | 2021-10-31 | LES_PTH ---
PATIENT: SIHVANI LEW LOC: [facility] U#:[id number] AGE/SX: 56/F ROOM: RE10/31/[address]: Dr. Federico Vega MD : 1965 BED: DIS: 10/31/2021 SPEC #: [id number] RECD: 10/31/21 17:26 STATUS: MOI REKenneth #: [id number] GABBI: 10/31/21 00:[address]: Federico Vega DEPT: SURGICAL PATHOLOGY RECD BY: Heather Magana ENTERED: 11/03/21 09:11 SP TYPE: Lesion OTHR DR: Dr. Lacy Juarez MD Tissues: Skin of eyelid, NOS Procedures: Surgery Specimen Level IV HEADER OPERATION: Left medial canthus lesion excision PRE-OP DIAGNOSIS: Left medial canthus lesion TISSUE SUBMITTED: Left medial canthus lesion MICROSCOPIC DIAGNOSIS Lesion of left medial canthus, biopsy: Consistent with benign hidrocystoma. AM:henrietta 11/04/2021 MICROSCOPIC DESCRIPTION Slides are reviewed. GROSS DESCRIPTION Received in fixative is one container labeled with the patient's name and designated left medial canthus. The specimen consists of a piece of singh-white skin measuring 0.3 x 0.2 x 0.1 cm. The entire specimen is submitted in one cassette. / HOLLY:henrietta 11/03/2021 TC:5 [facility]: [id number]
== END | disposition home or self-care (01) ==
PROVIDERS: PCP Family Medicine; Visit Provider Ophthalmology
DX: D23.10 Other benign neoplasm of skin of unspecified eyelid, including canthus (principal)
CPT/HCPCS: 88305

== ENCOUNTER → 2022-04-07 | Outpatient (CLI) | payer OTHER, SELFPAY ==
[2022-04-07 12:22] LABS: Absolute Lymphocyte Count 1.23 X10^3/uL (0.83-4.51); Absolute Neutrophil Count 2.9 X10^3/uL (2.0-7.7); Basophil# 0.02 X10^3/uL; Basophil% 0.4 % (0-1); Eosinophil# 0.07 X10^3/uL; Eosinophils% 1.5 % (0-5); Hematocrit 41.9 % (37-47); Hemoglobin 14.1 g/dL (12.0-15.0); Lymphocyte # 1.23 X10^3/ul (0.83-4.51); Mean Corp Hgb Conc 33.7 g/dL (32-36); Mean Corpuscular Hgb 31.5 pg (27.0-32.0); Mean Corpuscular Volume 93.5 fL (81-99); Mean Platelet Vol. 10.5 fl (6.2-12.0); Monocyte% 6.6 % (0-10); NRBC Flagged by Analyzer 0 % (0-5); Neutrophil # 2.93 X10^3/uL (2.7-7.7); Neutrophil % 64.3 % (47-70); Platelet Count 209 K/mm3 (150-450); RBC Distribution Width CV 11.8 % (11.6-14.6); RBC Distribution Width SD 39.9 fl (35.1-43.9); Red Blood Count 4.48 M/mm3 (4.2-5.4); White Blood Count 4.6 K/mm3 (4.4-11.0)
[2022-04-07 12:45] LABS: Microalbumin,Random Urine 7.5 mg/L (NO RANGE EST.); Microalbumin:Creatinine Ratio 7.7 mg/g CRE (<30 mg/g CRE)
[2022-04-07 13:06] LABS: AST(SGOT) 14 U/L (15-37); Alanine Aminotransfer ALT/SGPT 32 U/L (13-56); Albumin, Serum 3.7 g/dL (3.2-5.0); Alkaline Phosphatase 121 U/L (45-117); Anion Gap 8 (5-15); BUN 15 mg/dL (7-18); BUN/Creat Ratio 16.6 RATIO (10-20); Bilirubin, Direct 0.13 mg/dL (0.00-0.30); Calcium,Total 9.7 mg/dL (8.5-10.1); Chloride 104 mmol/L (98-107); Cholesterol 169 mg/dL (200); EST Glomerular Filtration Rate 68 mL/min (>60); Est Glom Filt Rate - Afr Amer 82 mL/min (>60); Globulin 3.7 g/dL (2.2-4.2); Glucose 225 mg/dL (74-106); High Density Lipoprotein 55 mg/dL; Potassium 3.8 mmol/L (3.5-5.1); Protein, Total 7.4 g/dL (6.4-8.2); Sodium Level 137 mmol/L (136-145); Thyroid Stim Hormone (TSH) 1.84 uIU/mL (0.358-3.74); Triglycerides 198 mg/dL; Very Low Density Lipoprotein 40 mg/dL (5-40)
== END | disposition home or self-care (01) ==
LOC: MFPLAB 10:00
PROVIDERS: PCP Family Medicine; Referring Provider Family Medicine; Visit Provider Family Medicine
DX: E11.9 Type 2 diabetes mellitus without complications (principal); F32.A Depression, unspecified
CPT/HCPCS: 36415; 80053; 80061; 82043; 82248; 82570; 84443; 85025

== ENCOUNTER → 2022-06-18 | Outpatient (CLI) | payer OTHER, SELFPAY ==
--- NOTE | 2022-06-18 07:24 | BI_ITS ---
MAMMOGRAPHY - BILATERAL SCREENING REASON FOR EXAM: Female, 57 years old. Routine annual screening examination. PERTINENT HISTORY: Non-contributory. History of bilateral excisional breast biopsies. TECHNIQUE: Digital bilateral breast vandana (3D mammographic acquisition) in the CC and MLO projections. 2-D mediolateral oblique (MLO) and craniocaudad (CC) views of both breasts were obtained. CAD: Full Field Digital Mammography with Computer Added Detection was performed. COMPARISON: Comparison is made with prior study dated June 12, 2021 and June 10, 2020. FINDINGS: Breast Composition: The breasts are heterogeneously dense, which may obscure small masses. There are no dominant masses or suspicious calcifications. No other significant abnormalities are identified. There has been no significant change since the prior study. BI/SCRN MAMM (CAD)W/VANDANA BILAT IMPRESSION: Stable bilateral screening mammogram. Yearly follow-up mammogram recommended. (A) ASSESSMENT CATEGORY: BIRADS Category 1: Negative. A letter regarding these results will be sent to the patient by the facility within 30 days. Approximately 10% of breast cancers are not detected by mammography. A normal mammogram should not delay biopsy of a clinically suspicious abnormality. [id number] Electronically Signed: Tobias Tyson MD at 8:52 EDT ,
== END | disposition home or self-care (01) ==
LOC: OPBI 07:22
PROVIDERS: PCP Family Medicine; Referring Provider Obstetrics & Gynecology; Visit Provider Obstetrics & Gynecology
DX: Z12.31 Encounter for screening mammogram for malignant neoplasm of breast (principal)
CPT/HCPCS: 77063; 77067

== ENCOUNTER → 2023-05-07 | Outpatient (CLI) | payer OTHER, SELFPAY ==
[2023-05-07 18:18] LABS: AST(SGOT) 24 U/L (15-37); Alanine Aminotransfer ALT/SGPT 44 U/L (13-56); Albumin, Serum 3.9 g/dL (3.2-5.0); Alkaline Phosphatase 100 U/L (45-117); Anion Gap 7 (5-15); BUN 12 mg/dL (7-18); BUN/Creat Ratio 14.1 RATIO (10-20); Bilirubin, Direct 0.17 mg/dL (0.00-0.30); Calcium,Total 9.6 mg/dL (8.5-10.1); Chloride 108 mmol/L (98-107); Cholesterol 175 mg/dL (200); Creatinine, Serum 0.85 mg/dL (0.55-1.02); EST Glomerular Filtration Rate 72 mL/min (>60); Est Glom Filt Rate - Afr Amer 88 mL/min (>60); Globulin 3.7 g/dL (2.2-4.2); Glucose 127 mg/dL (74-106); High Density Lipoprotein 57 mg/dL; Potassium 3.7 mmol/L (3.5-5.1); Protein, Total 7.6 g/dL (6.4-8.2); Sodium Level 140 mmol/L (136-145); Thyroid Stim Hormone (TSH) 1.44 uIU/mL (0.358-3.74); Triglycerides 175 mg/dL; Very Low Density Lipoprotein 35 mg/dL (5-40)
[2023-05-12 09:45] LABS: Hemoglobin A1c 7.4 % (3.8-5.6)
== END | disposition home or self-care (01) ==
LOC: MTLAB 14:31
PROVIDERS: Family Medicine; PCP Family Medicine; Referring Provider Family Medicine; Visit Provider Family Medicine
DX: E11.69 Type 2 diabetes mellitus with other specified complication (principal)
CPT/HCPCS: 36415; 80048; 80061; 80076; 83036; 84443

== ENCOUNTER → 2023-06-29 | Outpatient (CLI) | payer OTHER, SELFPAY ==
--- NOTE | 2023-06-29 08:23 | BI_ITS ---
MAMMOGRAPHY - BILATERAL SCREENING 3-D TOMOSYNTHESIS REASON FOR EXAM: Female, 58 years old. screening PERTINENT HISTORY: No significant family history. TECHNIQUE: 2-D mammograms and 3-D Tomosynthesis of the breast (s) were performed. CAD was performed. COMPARISON: 06/18/2022 FINDINGS: The breast composition is composed of scattered fibroglandular density. Scattered benign calcifications are seen. No dense spiculated masses or suspicious microcalcifications are identified. No architectural distortion is identified. There is no skin thickening or retraction. There has been no significant change since the prior study. BI/SCRN MAMM (CAD)W/VANDANA BILAT IMPRESSION: No mammographic signs of malignancy. Routine yearly mammograms recommended. ASSESSMENT CATEGORY: BIRADS Category 1: Negative. A letter regarding these results will be sent to the patient by the facility within 30 days. FOLLOW UP RECOMMENDATION: Yearly follow up mammogram recommended. (A) Approximately 10% of breast cancers are not detected by mammography. A normal mammogram should not delay biopsy of a clinically suspicious abnormality. Electronically Signed: Wayne Humphreys MD at 23:58 EDT ,
--- NOTE | 2023-06-29 08:43 | BD_ITS ---
STUDY: DUAL ENERGY X-RAY ABSORPTIOMETRY / DXA REASON FOR EXAM: Female, 58 years old. R93.7 TECHNIQUE: Bone Mineral Density (BMD) measurements of lumbar spine and bilateral hips were obtained. COMPARISON: None. FINDINGS: Lumbar Spine (L1-L4): g/cm2 (1.046) / T-score (0.0) / Z-score (1.4) Findings are suggestive of normal bone density with a low fracture risk. Left Femur Total: g/cm2 (0.954) / T-score (0.1) / Z-score (1.1) Left Femoral Neck: g/cm2 (0.749) / T-score (-0.9) / Z-score (0.4) Right Femur Total: g/cm2 (0.969) / T-score (0.2) / Z-score (1.2) Right Femoral Neck: g/cm2 (0.787) / T-score (-0.6) / Z-score (0.7) BD/Dexa Bone Density Study IMPRESSION: The patient is considered normal as outlined below according to World Satya Organization (WHO) criteria with a low fracture risk. Reference Information: The T-score is the number of standard deviations above or below the standard which is normal for young adults at their peak bone mineral density. The World Health Organization (WHO) interprets the T-scores as follows: Above -1 Normal bone density Between -1 and -2.5 Osteopenia Equal to / or below -2.5 Osteoporosis As a practical clinical guideline, osteopenia may be graded as follows: Mild -1 through -1.5 Moderate -1.6 through -2.0 Severe -2.1 through -2.4 The Z-score is the number of standard deviations above or below age-matched controls. A Z-score of less than -1.5 would be considered abnormal. References: 1. NIH Osteoporosis and Related Bone Diseases www osteo.org 2. International Society for Clinical Densitometry www iscd.org 3. National Osteoporosis Foundation www nof.org Electronically Signed: Tobias Tyson MD at 9:52 EDT ,
== END | disposition home or self-care (01) ==
PROVIDERS: PCP Family Medicine; Referring Provider Family Medicine; Visit Provider Family Medicine
DX: Z12.31 Encounter for screening mammogram for malignant neoplasm of breast (principal); R93.7 Abnormal findings on diagnostic imaging of other parts of musculoskeletal system
CPT/HCPCS: 77063; 77067; 77080

== ENCOUNTER → 2024-01-04 | Outpatient (CLI) | payer OTHER, SELFPAY ==
--- NOTE | 2024-01-04 07:43 | VDLE_ITS ---
Reason For Study: LLE PAin RIGHT LEFT FV is compressible, spontaneous, phasic, GSV is normal. competent and demonstrates normal CFV is compressible, spontaneous, phasic, augmentation. competent, and demonstrates normal Procedure augmentation. This is a venous duplex using B-mode, color FV is compressible, spontaneous, phasic, flow and spectral Doppler. competent and demonstrates normal Exam performed in department. augmentation. The exam was diagnostic. POP V is compressible, spontaneous, phasic, competent and demonstrates normal augmentation. T/P Trunk is compressible. PTV is compressible. LT PerV is compressible. VL/Venous Duplex US, Unilateral Interpretation Summary Deep veins of the left lower extremity are patent and compressible segmentally. There is no evidence of left lower extremity deep vein thrombosis. Valvular competence appears intac t within the proximal deep venous system on the left . The left great saphenous vein appears patent a nd compressible segmentally. The right femoral vein is patent and compressible. Ordering Physician: Lacy Juarez Referring Physician: Lacy Juarez Performed By: Leo Ye RVT
== END | disposition home or self-care (01) ==
PROVIDERS: PCP Family Medicine; Referring Provider Family Medicine; Visit Provider Family Medicine
DX: M79.662 Pain in left lower leg (principal)
CPT/HCPCS: 93971

== ENCOUNTER → 2024-05-15 | Outpatient (CLI) | payer OTHER, SELFPAY ==
[2024-05-15 19:34] LABS: Protein, Urine (Random) 15.5 mg/dL (0.0-12.0); Protein:Creat Ratio 76 mg/g CRE (0-200)
[2024-05-15 19:35] LABS: AST(SGOT) 26 U/L (<=31); Alanine Aminotransfer ALT/SGPT 37 U/L (<=34); Anion Gap 13 (5-15); BUN 13 mg/dL (4-19); Calcium,Total 9.6 mg/dL (7.6-11.0); Carbon Dioxide 21.6 mmol/L (21.0-32.0); Chloride 105 mmol/L (98-108); Cholesterol 183 mg/dL (<=200); Creatinine, Serum 0.78 mg/dL (0.70-1.20); EST Glomerular Filtration Rate 87 (>60); Glucose 183 mg/dL (70-99); High Density Lipoprotein 61 mg/dL; Low Density Lipoprotein Calc. 49 mg/dL; Potassium 4.2 mmol/L (3.3-5.1); Sodium Level 140 mmol/L (133-145); Triglycerides 366 mg/dL; Very Low Density Lipoprotein 73 mg/dL (5-40); cholesterol:hdl ratio screen 2.99
== END | disposition home or self-care (01) ==
LOC: MFPLAB 17:02
PROVIDERS: PCP Family Medicine; Referring Provider Family Medicine; Visit Provider Family Medicine
DX: E11.69 Type 2 diabetes mellitus with other specified complication (principal)
CPT/HCPCS: 36415; 80048; 80061; 82570; 84156; 84450; 84460

== ENCOUNTER → 2024-06-29 | Outpatient (CLI) | payer OTHER, SELFPAY ==
--- NOTE | 2024-06-29 12:44 | BI_ITS ---
EXAM: SCRN MAMM (CAD)W/VANDANA BILAT DATE: 06/29/2024 CLINICAL HISTORY: F, Age 59 y/o , BREAST CANCER SCREENING No family history. Prior bilateral excisional breast biopsies. BREAST CANCER RISK ASSESSMENT: Not assessed. TECHNIQUE: Bilateral screening digital breast tomosynthesis with 2D and 3D images. Computer aided detection. COMPARISON: Prior exam(s) dated June 29, 2023.. FINDINGS: TISSUE DENSITY: The breast tissue is heterogenously dense, which may obscure small masses. Bilateral Breast Mammographic Findings: No significant masses, calcifications or other abnormalities are identified. Stable bilateral fat containing axillary lymph nodes. No suspicious masses, areas of developing architectural distortion, or suspicious calcifications. There has been no significant interval change. BI/SCRN MAMM (CAD)W/VANDANA BILAT IMPRESSION: OVERALL FINAL ASSESSMENT: BIRADS 2 BENIGN FINDING RECOMMENDATION: Routine annual follow-up in 1 Year A letter with findings and recommendations will be mailed to the patient. Reading Location: [place] [id number]
== END | disposition home or self-care (01) ==
LOC: OPBI 12:43
PROVIDERS: PCP Family Medicine; Referring Provider Obstetrics & Gynecology; Visit Provider Obstetrics & Gynecology
DX: Z12.31 Encounter for screening mammogram for malignant neoplasm of breast (principal)
CPT/HCPCS: 77063; 77067

== ENCOUNTER 2024-11-09 18:39 | Emergency (ER) | payer OTHER, SELFPAY ==
[2024-11-09 18:40] VITALS: BP 182/115; PULSE 99; RESP 28; TEMP 36; O2SAT 97
--- NOTE | 2024-11-09 19:33 | CT_ITS ---
PROCEDURE: ABDOMEN/PELVIS WITHOUT CONT 11/09/2024 REASON FOR EXAM: KIDNEY STONE TECHNIQUE: Procedure Code: CTABDPEL Modality: CT Procedure: ABDOMEN/PELVIS WITHOUT CONT Noncontrast technique limits evaluation of the abdominal and pelvic viscera. Coronal and Sagittal reconstruction series were provided. One or more dose reduction techniques were used (e.g., Automated exposure control, adjustment of the mA and/or kV according to patient size, use of iterative reconstruction technique). RADIATION DOSE SUMMARY: CTDlvol: 12.71 mGy DLP: 679.53 mGycm COMPARISON: None. FINDINGS: Lung bases: Clear. Liver: Unremarkable. Gallbladder: Distended. No biliary dilation. Spleen: No splenomegaly. Multiple calcifications due to old granulomatous disease. Pancreas: Unremarkable. Adrenals: Unremarkable. Kidneys: Perinephric fat stranding. A 6 mm obstructing stone at the left ureter-bladder junction causing severe left hydronephrosis. Bladder: Unremarkable. Reproductive Organs: Unremarkable Bowel: Colonic diverticulosis with no evidence of acute diverticulitis. No bowel wall thickening or bowel obstruction. Appendix: Normal. Lymph nodes: No lymphadenopathy. Vasculature: No aneurysm. Peritoneum / Retroperitoneum: No free air or free fluid. Bones: No acute bony abnormalities. CT/Abdomen/Pelvis without Cont IMPRESSION: A 6 mm obstructing stone at the left ureter-bladder junction causing severe lef t hydronephrosis. Perinephric fat stranding. Correlate with urinalysis is recommended to rule ou t urinary tract infection. Colonic diverticulosis with no evidence of acute diverticulitis. Reading Location: [id number]
--- NOTE | 2024-11-09 19:35 | EX.ED.DYSGE1 ---
HPI History of Present Illness Chief Complaint: Abd Pain Detail of Chief Complaint: Acute left flank pain radiating anteriorly to the inguinal area Informant: patient Onset/Context/Timing Onset: Today (1829) Context: Sudden Onset Timing: Continuous Location: Left flank radiating anteriorly Current Severity: Severe Maximum Severity: Severe Worsened by: Nothing Relieved by: Nothing Associated Symptoms Associated Symptoms: Nausea and vomiting x 2 Narrative Narrative: Patient is a 59-year-old woman. She has history of type 2 diabetes, hypercholesterolemia and depression. She has been on metformin and the cholesterol medicine since 2019. She has no history of renal ureterolithiasis to her knowledge. She denies dysuria, frequency, urgency or hematuria. She does endorse nausea and vomiting x 2. She denies fever, chills night sweats. Prior similar symptoms: No Recent Illness/Hospitalization: No PFSH [facility] Medical History Stress incontinence Incomplete uterovaginal prolapse Uterovaginal prolapse Home Medications ?Medication ?Instructions ?Recorded ?Last Taken ?Type metformin 500 mg tablet 500 mg PO DAILY 09/27/19 Unknown History fluoxetine 20 mg capsule 20 mg PO QPM 06/18/22 Unknown History rosuvastatin 10 mg tablet 10 mg PO DAILY 06/18/22 Unknown History aspirin 81 mg tablet 81 mg PO QDAY 06/26/24 Unknown History cephalexin 500 mg capsule 500 mg PO Q6 #28 CAPSULES 11/09/24 Unknown Rx hydrocodone-acetaminophen 5-325mg 1 tab PO Q6H PRN PRN Pain 3 days 11/09/24 Unknown Rx 5mg-325mg #10 TABLETS ondansetron 4 mg disintegrating 4 mg PO Q8H PRN PRN Nausea #10 tabs 11/09/24 Unknown Rx tablet Allergy/AdvReac Type Severity Reaction Status Date / Time No Known Allergies Allergy Verified 11/09/24 18:39 Family History Other Heart disease Surgical History H/O bladder repair surgery History of cystoscopy mid uerthral sling bilateral sacrospinous ligament fixation Hx of bilateral salpingectomy History of total vaginal hysterectomy H/O lumpectomy Social History Smoking Status: Former smoker alcohol intake: current details: social substance use type: does not use caffeine: Yes what type of physical activity do you participate in: walking seatbelt use: always do you feel safe at home: Yes additional social history: [employer] Patient works [employer] ROS ROS ED Constitutional Constitutional ED: Denies chills, fever(s), subjective or sweats Cardiovascular Cardiovascular: Denies chest pain or palpitations Respiratory/Chest Respiratory/Chest: Denies cough, dyspnea or dyspnea on exertion Gastrointestinal Gastrointestinal: Reports abdominal pain; Denies constipation, diarrhea, melena, nausea or vomiting Genitourinary Genitourinary ED: Denies dysuria, hematuria or urinary frequency Musculoskeletal Musculoskeletal: Reports back pain; Denies arthralgias, myalgias or neck pain Integumentary Denies rash Endocrine Endocrinology: Denies cold intolerance or heat intolerance Hematologic/Lymphatic Hematologic/Lymphatic: Reports systems reviewed and no addt'l complaints, except as documented EXAM Physical Exam Const Vital Signs: 11/09/24 18:40 11/09/24 19:39 11/09/24 20:00 Temperature 96.8 F L Temperature Source Temporal Pulse Rate 99 76 78 Respiratory Rate 28 H 22 H 16 Blood Pressure 182/115 H 142/70 H Blood Pressure Mean 137 94 Pulse Ox 97 100 96 Oxygen Delivery Method Room Air Room Air Room Air 11/09/24 21:00 Temperature Temperature Source Pulse Rate 85 Respiratory Rate 14 Blood Pressure 128/67 H Blood Pressure Mean 87 Pulse Ox 98 Oxygen Delivery Method Room Air Positive well nourished and well developed Constitutional Narrative: Patient is in obvious discomfort pacing. She is pale. Blood pressure is elevated. General Appearance ED: well developed HEENT Reports dry mucous membranes HEENT Narrative: Head is atraumatic and normocephalic. Ears normal. Mouth ED: Yes dry mucous membranes Mouth: dry mucous membranes Eyes PERRL and EOMs intact bilaterally General Eye ED: Negative for scleral icterus Neck no lymphadenopathy, supple and no JVD Resp normal respiratory effort and clear to auscultation bilaterally Cardio regular rate, regular rhythm, S1 normal heart sound and S2 normal heart sound Back/Spine no CVA tenderness Cervical Spine: Negative for cervical spine tenderness Thoracic Spine / Upper Back: Negative for thoracic spinal tenderness Lumbar Spine / Lower Back: Negative for lumbar spinal tenderness Extremity normal to inspection General Extremety ED: Negative for edema or tenderness General Extremity: Negative for edema Neuro oriented x3 and CN's II-XII intact bilaterally Sensorium / Orientation: alert Psych mental status grossly normal Skin no rashes or lesions noted MDM MDM MDM Narrative Medical decision making narrative: Patient with abrupt onset of left flank pain rating anteriorly. Need to evaluate for obstructing ureteral stone, obstructing renal stone, obstruction with infection. History is not consistent with pyelonephritis. Doubt perforated viscus. Patient was medicated with Zofran for her nausea and vomiting. She received acuter [place] and morphine 4 mg and 50 mg respectively for her pain. CT of the abdomen and pelvis without contrast was ordered. Appropriate blood work was ordered to assess white count differential, renal function, glucose and CO2. Lab Data Attestation: I reviewed the patient's lab results. Lab results narrative: White count is slightly elevated 12.0 with slight shift no bandemia. H&H is normal. Comprehensive metabolic panel is marked for glucose of 232 with a high anion gap. CO2 is 18.9 and gap is 19. This may be due to hyperventilation. Do not believe she is in DKA. Will order a beta hydroxybutyrate if there is ketones in her urine. Labs: Laboratory Results - last 24 hr 11/09/24 11/09/24 19:50 20:45 WBC 12.0 H RBC 4.48 Hgb 14.7 Hct 41.9 MCV 93.5 MCH 32.8 H MCHC 35.1 RDW Std Deviation 41.6 RDW Coeff of [place] 12.0 Plt Count 264 MPV 9.9 Immature Gran % (Auto) 0.300 Neut % (Auto) 77.6 H Lymph % (Auto) 14.3 L [place] % (Auto) 6.6 Eos % (Auto) 0.8 Baso % (Auto) 0.4 Absolute Neuts (auto) 9.3 H Absolute Lymphs (auto) 1.71 Nucleated RBC % 0 Sodium 140 Potassium 4.0 Chloride 102 Carbon Dioxide 18.9 L Anion Gap 19 H BUN 18 Creatinine 1.03 Est GFR (MDRD) Non-Af 62 BUN/Creatinine Ratio 17.7 Glucose 232 H Calcium 10.3 Total Bilirubin 0.39 AST 25 ALT 33 Alkaline Phosphatase 109 H Total Protein 7.7 Albumin 4.6 Globulin 3.1 Albumin/Globulin Ratio 1.5 Lipase 42 Urine Color Yellow Urine Clarity Cloudy Urine pH 7.0 Ur Specific [place] 1.015 Urine Protein 30 H Urine Glucose (UA) Normal Urine Ketones 150 A* Urine Occult Blood 250 H Urine Nitrite Negative Urine Bilirubin Negative Urine Urobilinogen Normal Ur Leukocyte Esterase 25 H Urine RBC 25-50 SEEN Urine WBC 0-5 SEEN Ur Squamous Epith Cells 0-5 SEEN Amorphous Sediment 3+ Urine Bacteria 2+ Urine Mucus 0 SEEN Radiography Diagnostic Testing: Clinical Impression(s) from Imaging Studies Abdomen/Pelvis CT 11/09/24 19:33 IMPRESSION: A 6 mm obstructing stone at the left ureter-bladder junction causing severe left hydronephrosis. Perinephric fat stranding. Correlate with urinalysis is recommended to rule out urinary tract infection. Colonic diverticulosis with no evidence of acute diverticulitis. Reading Location: [facility] CT of the abdomen pelvis reveals evidence of hydronephrosis and ureter on the left side due to a oblong left obstructing ureteral stone at the UVJ. Patient has extensive diverticulosis. There is also some mild atherosclerotic disease. Awaiting formal read by radiologist, 2017 Treatment and Re-Evaluation :: Since patient does not have a urologist she referred her Dr. Chang who is on-call for no doc. Discharge Plan Triage Chief Complaint: Abd Pain Other Complaint: Flank Pain ED Provider: Josr Griffin Dx/Rx/DC Orders Clinical Impression: Hydronephrosis with urinary obstruction due to ureteral calculus, Bacteriuria, Elevated blood pressure reading, Type 2 diabetes mellitus with hyperglycemia, Diverticulosis Instructions: ED Kidney Stone with Pain Prescriptions: New hydrocodone-acetaminophen 5-325 mg tablet 1 tab PO Q6H PRN PRN (Reason: Pain) 3 Days Qty: 10 0RF cephalexin 500 mg capsule 500 mg PO Q6 Qty: 28 0RF ondansetron 4 mg tablet,disintegrating 4 mg PO Q8H PRN PRN (Reason: Nausea) Qty: 10 0RF No Action metformin 500 mg tablet 500 mg PO DAILY rosuvastatin 10 mg tablet 10 mg PO DAILY fluoxetine 20 mg capsule 20 mg PO QPM Rx Instructions: administer in the morning and at noon/midday aspirin 81 mg tablet 81 mg PO QDAY Primary Care Provider: Lacy Juarez Referrals: Lacy Juarez MD [Primary Care Provider, Family Practice] Jack Chang MD [Med Staff - Active Staff, Urology] - 3-5 Days Activity Restrictions/Additional Instructions: If you develop temperature greater than 100, have shaking chills, pain is not controlled or if you are unable to eat or drink anything return to the emergency department as soon as possible Print Language: [place] Disposition Disposition: Home, Self Care
[2024-11-09 19:39] VITALS: PULSE 76; RESP 22; O2SAT 100
[2024-11-09] MEDS: 0.9% Normal Saline (1000mL) 1,000 ML 250 ML IV (19:47)
[2024-11-09 20:00] VITALS: BP 142/70; PULSE 78; RESP 16; O2SAT 96
[2024-11-09 20:01] LABS: Hematocrit 41.9 % (37-47); Hemoglobin 14.7 g/dL (12.0-15.0); Immature Granulocytes Count 0.040 X10^3/uL (0.0-0.0); Mean Corp Hgb Conc 35.1 g/dL (32-36); Mean Corpuscular Volume 93.5 fL (81-99); Mean Platelet Vol. 9.9 fl (6.2-12.0); NRBC Flagged by Analyzer 0 % (0-5); Platelet Count 264 K/mm3 (150-450); RBC Distribution Width CV 12.0 % (11.6-14.6); RBC Distribution Width SD 41.6 fl (35.1-43.9); Red Blood Count 4.48 M/mm3 (4.2-5.4); White Blood Count 12.0 K/mm3 (4.4-11.0)
[2024-11-09 20:27] LABS: AST(SGOT) 25 U/L (<=31); Alanine Aminotransfer ALT/SGPT 33 U/L (<=34); Albumin, Serum 4.6 g/dL (3.4-4.8); Alkaline Phosphatase 109 U/L (35-104); Anion Gap 19 (5-15); BUN 18 mg/dL (4-19); BUN/Creat Ratio 17.7 RATIO (10-20); Calcium,Total 10.3 mg/dL (7.6-11.0); Carbon Dioxide 18.9 mmol/L (21.0-32.0); Chloride 102 mmol/L (98-108); Globulin 3.1 g/dL (2.2-4.2); Glucose 232 mg/dL (70-99); Lipase 42 U/L (13-75); Potassium 4.0 mmol/L (3.3-5.1)
[2024-11-09 20:50] LABS: Mucous, Urine 0 SEEN /hpf (<or=2+)
[2024-11-09 20:51] LABS: Color, Urine Yellow (Yellow); Glucose, Dipstick Normal (Normal); Leukocyte Esterase-Dipstick 25 /ul (Negative); Nitrite-Dipstick Negative (Negative); Occult Blood-Urine 250 /ul (Negative); Protein-Dipstick 30 mg/dl (Negative); Specific Gravity, Urine 1.015 (1.002-1.030); Urine Bilirubin Dipstick Negative (Negative)
[2024-11-09 20:52] LABS: Ketone-Dipstick 150 mg/dl (Negative)
[2024-11-09 21:00] VITALS: BP 128/67; PULSE 85; RESP 14; O2SAT 98
[2024-11-09 21:03] LABS: Red Blood Cells-Urine 25-50 SEEN /hpf (0-5); Squamous Epithelial Cells - UA 0-5 SEEN /hpf (5-10)
[2024-11-09] MEDS: Ceftriaxone 2 GM in 0.9% Normal Saline (50mL MB+) 50 ML IV (21:38)
[2024-11-09 21:45] VITALS: BMI 33.5
[2024-11-09 21:59] VITALS: BP 128/67; PULSE 69; RESP 18; TEMP 36.4; O2SAT 98
== END 2024-11-09 23:01 | disposition home or self-care (01) ==
PROVIDERS: Emergency Provider Emergency Medicine; PCP Family Medicine; Visit Provider Emergency Medicine
DX: N13.2 Hydronephrosis with renal and ureteral calculous obstruction (principal); E11.65 Type 2 diabetes mellitus with hyperglycemia; R82.71 Bacteriuria; R11.2 Nausea with vomiting, unspecified; Z87.891 Personal history of nicotine dependence; Z79.84 Long term (current) use of oral hypoglycemic drugs; R03.0 Elevated blood-pressure reading, without diagnosis of hypertension; K57.30 Diverticulosis of large intestine without perforation or abscess without bleeding; E78.00 Pure hypercholesterolemia, unspecified; Z79.899 Other long term (current) drug therapy
CPT/HCPCS: 74176; 80048; 80053; 81001; 83690; 85025; 87086; 87088; 99284; A4216; J0696; J2405